=== PATIENT | female | born 1985 | race Caucasian/White ===

== ENCOUNTER 2016-10-26 19:01 | Emergency (ER) | payer MEDICARE, OTHER ==
[~2016-10-26] VITALS: Ht 160 cm; Wt 103.9 kg
[2016-10-26 19:01] VITALS: BP 144/82
[~2016-10-26 19:01] MED LIST: TRAM50TA PO
--- NOTE | 2016-10-26 19:42 | PHYS DOC ---
General Chief Complaint: SORE THROAT Stated Complaint: NECK PAIN, SORE THROAT Time Seen by MD: 19:10 Source: patient Problems: History of Present Illness Initial Comments Patient here for sore throat. She says this started 2 days ago. She has difficulty swallowing both food and liquids, but has been able tolerate liquids. She says it feels like a knife when she swallows. She also feels swelling in the submandibular area like her glands are swollen up. She's had no fever or chills. There is no runny nose and no postnasal drip or sinus congestion. There is no earache. She has no trouble talking. She has no chest pain or shortness of breath. There is no cough. There is no nausea or vomiting. She has no abdominal pain. There is no change amount of bladder habits and she denies any focal extremity or neurologic complaints. Patient's really done nothing at home for this and notes no factors increase or decrease her symptoms other than swallowing makes the pain worse. She has no known sick contacts. Patient's past medical history as work for asthma as well as mental health issues such as anxiety and depression. She is a nonsmoker and nonuser of ethanol. Allergies: Coded Allergies: Sulfa (Sulfonamide Antibiotics) (Verified Allergy, Intermediate, 07/25/16) Past Medical History Medical History: asthma Psychosocial History: anxiety, depression Social History Smoker: non-smoker Alcohol: none Review of Systems All Other Systems: Reviewed and Negative Physical Exam General Appearance: WD/WN, no apparent distress Ear, Nose, Throat: pharyngeal erythema, tonsillar swelling, other Neck: full range of motion, supple, normal inspection, lymphadenopathy (R), lymphadenopathy (L) Respiratory: lungs clear, normal breath sounds, no respiratory distress Cardiovascular: regular rate, rhythm, no edema Neurologic/Psychiatric: alert, normal mood/affect, oriented x 3 Skin: normal color, warm/dry Lymphatic: other Comments Generally this is an obese white female in no acute distress. She appears mildly anxious. Vitals are as noted. Pertinent signs on physical exam shows ears to be clear. Tonsils are somewhat enlarged and erythematous as is the back of pharynx. However, there is no exudate noted. There is no distinct dysphagia, dysphonia, or problems with secretions. Patient has minimal but tender bilateral high cervical adenopathy. There is no evidence of Manas's angina. There is no swelling about the neck. Chest is clear and cardiovascular exams unremarkable. She is awake alert oriented and cooperative. Remainder of physical exam is clinically unremarkable. Orders, Labs, Meds Old charts note is no prior ER visit for abdominal pain. Strep test is positive. 1940 Patient resting comfortably in the ED. Discussed the patient most likely diagnosis of strep pharyngitis. We'll go and get her started on some antibiotics medicine for pain. I'll write a prescription for penicillin as well as for Tylenol with codeine syrup to hopefully make it easier for her to swallow is dehydrated. We discussed home care including rest, increase fluids, use Advil or Tylenol as needed for fever or pain. She voices understanding of the need to follow up with primary care or return to the ER sooner as needed if worsening anyway. She looks well, no acute discomfort distress, mildly anxious, and okay for discharge home at this time. LIZZETH THOMAS MD Oct 26, 2016 19:42
== END 2016-10-26 19:55 | disposition home or self-care (01) ==
LOC: ER 19:01
DX: J02.0 Streptococcal pharyngitis (principal); F32.9 Major depressive disorder, single episode, unspecified; F41.9 Anxiety disorder, unspecified; J45.909 Unspecified asthma, uncomplicated; Z88.2 Allergy status to sulfonamides
CPT/HCPCS: 87880; 99282; 99283

== ENCOUNTER 2017-08-20 18:40 | Emergency (ER) | payer MEDICARE, OTHER ==
[~2017-08-20] VITALS: Ht 160 cm; Wt 108.9 kg
[2017-08-20 18:40] VITALS: BP 140/94
--- NOTE | 2017-08-20 19:03 | PHYS DOC ---
Past History Past Medical History: Anxiety, Asthma, Bipolar, Depression Past Surgical History: Cholecystectomy, Tubal ligation Alcohol Use: Occasionally Drug Use: None Adult General Chief Complaint Chief Complaint: FOOT INJURY PAIN HPI HPI Patient is a 32 year old female who presents with complaint of right foot pain. Patient states that she injured her foot earlier today. Patient states that she slipped on ice while going to check her mail. The patient states that her foot folded underneath her as she fell. Patient states that she is having pain towards the right great toe and the top of her right foot. Patient states that the pain worsens when she bears weight and rates it as 9 out of 10 at its worst. Patient denies any other injuries. Patient came to the emergency department for evaluation to make sure that she did not break anything in her foot. Review of Systems Review of Systems Constitutional: Denies fever or chills [] Eyes: Denies change in visual acuity, redness, or eye pain [] HENT: Denies nasal congestion or sore throat [] Musculoskeletal: Right foot pain[] Integument: Denies rash or skin lesions [] Neurologic: Denies headache, focal weakness or sensory changes [] All other systems were reviewed and found to be within normal limits, except as documented in this note. Current Medications Current Medications Current Medications Medications (Trade) Dose Ordered Sig/[facility] Start Time Stop Time Status Last Admin Dose Admin Ibuprofen (Motrin) 600 mg 1X ONCE 08/20/17 19:00 08/20/17 19:01 UNV Allergies Allergies Allergies Coded Allergies Type Severity Reaction Last Updated Verified Sulfa (Sulfonamide Antibiotics) Allergy Intermediate 07/25/16 Yes Physical Exam Physical Exam Constitutional: Well developed, well nourished, no acute distress, non-toxic appearance. [] HENT: Normocephalic, atraumatic, bilateral external ears normal, oropharynx moist, no oral exudates, nose normal. [] Eyes: PERRLA, EOMI, conjunctiva normal, no discharge. [] Extremities: No obvious deformity right foot, tenderness palpation along dorsum of right great toe and right forefoot, no tenderness to palpation along ankle, full range of motion and right ankle, normal sensation and normal capillary refill in all 5 digits of right foot. [] Neurologic: Alert and oriented X 3, normal motor function, normal sensory function, no focal deficits noted. [] Current Patient Data Vital Signs Vital Signs Date Time Temp Pulse Resp B/P (MAP) Pulse Ox O2 Delivery O2 Flow Rate FiO2 08/20/17 18:40 98.4 87 20 98 Room Air Lab Results None performed EKG EKG Not performed[] Radiology/Procedures Radiology/Procedures 3 view right foot x-ray interpreted by me: No fractures, no dislocations, normal soft tissue[] Course & Med Decision Making Course & Med Decision Making Pertinent Labs and Imaging studies reviewed. (See chart for details) Patient treated with ibuprofen and was given crutches to assist with ambulation. Advised follow-up with primary doctor in 1 week if symptoms are not improving. Also recommended RICE therapy for continued outpatient therapy. Advised return emergency department for any worsening symptoms. Patient voiced understanding and in agreement with treatment plan. Dragon Disclaimer Dragon Disclaimer This electronic medical record was generated, in whole or in part, using a voice recognition dictation system. Departure Departure: Impression: Primary Impression: Foot sprain Disposition: HOME, SELF-CARE Condition: IMPROVED Referrals: DODIE RESENDIZ (PCP) Patient Instructions: Foot Sprain, RICE - Routine Care for Injuries Additional Instructions: Follow-up with your primary doctor in 1 week if symptoms are not improving. Return to the emergency department for any worsening symptoms. Scripts Ibuprofen (IBUPROFEN) 600 Mg Tablet 600 MG PO Q6HRS Y for PAIN, #30 TAB Prov: DIANA VELASCO MD 08/20/17 Problem Qualifiers Primary Impression: Foot sprain Encounter type: initial encounter Laterality: right Qualified Codes: S93.601A - Unspecified sprain of right foot, initial encounter DIANA VELASCO MD Aug 20, 2017 19:03
[2017-08-20] MEDS ORDERED: IBUPROFEN 600 MG TABLET. PO ONE (19:15)
[2017-08-20] MEDS ORDERED: IBUP600T16 PO (19:32)
--- NOTE | 2017-08-21 07:26 | RAD ---
3 view right foot 08/20/2017 Clinical indication: Right foot pain status post fall. Comparison: None. Findings: No acute fracture or traumatic malalignment. Normal bony alignment. The joint spaces are maintained. Mild infracalcaneal spurring. Impression: No acute osseous abnormality.
== END 2017-08-20 19:49 | disposition home or self-care (01) ==
LOC: ER 18:40
DX: S93.601A Unspecified sprain of right foot, initial encounter (principal); J45.909 Unspecified asthma, uncomplicated; F41.9 Anxiety disorder, unspecified; F31.9 Bipolar disorder, unspecified; Z88.2 Allergy status to sulfonamides; W00.0XXA Fall on same level due to ice and snow, initial encounter; Y93.89 Activity, other specified; Y99.8 Other external cause status; Y92.89 Other specified places as the place of occurrence of the external cause
CPT/HCPCS: 73630; 99284

== ENCOUNTER 2018-05-22 21:45 | Emergency (ER) | payer MEDICARE, OTHER ==
[~2018-05-22] VITALS: Ht 157.5 cm; Wt 111.1 kg
[~2018-05-22 21:45] MED LIST changes: +IBUP600T16 PO
--- NOTE | 2018-05-23 05:06 | ED.ADGEN ---
Past History Past Medical History: Anxiety, Asthma, Bipolar, Depression Past Surgical History: Cholecystectomy, Tubal ligation Alcohol Use: Occasionally Drug Use: None, Other Adult General Chief Complaint Chief Complaint Anxiety HPI HPI Patient is a 33-year-old female presents with increasing anxiety, palpitations and paranoia after smoking half well prior to ED arrival. In terms began approximately 30 minutes ago. Patient reports feeling uneasy. No shortness breath, wheezing, fever or cough. No other acute symptoms or complaints. Arrives by EMS. Patient initially tachycardic with heart rate in the upper 130s. Review of Systems Review of Systems Review symptoms as per history of present illness. All other review symptoms are negative.] All other systems were reviewed and found to be within normal limits, except as documented in this note. Allergies Allergies Allergies Coded Allergies Type Severity Reaction Last Updated Verified Sulfa (Sulfonamide Antibiotics) Allergy Intermediate 05/23/18 Yes Physical Exam Physical Exam Constitutional: Well developed, well nourished, anxious[] HENT: Normocephalic, atraumatic, bilateral external ears normal, oropharynx moist, no oral exudates, nose normal. [] Eyes: PERRLA, EOMI, conjunctiva normal, no discharge. [] Neck: Normal range of motion, no tenderness, supple, no stridor. [] Cardiovascular:Heart rate regular rhythm, no murmur [] Lungs & Thorax: Bilateral breath sounds clear to auscultation [] Abdomen: Bowel sounds normal, soft, no tenderness, no masses, no pulsatile masses. [] Skin: Warm, dry, no erythema, no rash. [] Back: No tenderness, no CVA tenderness. [] Extremities: No tenderness, no cyanosis, no clubbing, ROM intact, no edema. [] Neurologic: Alert and oriented X 3, normal motor function, normal sensory function, no focal deficits noted. [] Psychologic: Affect anxious, no HI or SI.[] Current Patient Data Vital Signs Vital Signs Date Time Temp Pulse Resp B/P (MAP) Pulse Ox O2 Delivery O2 Flow Rate FiO2 05/22/18 21:58 98.5 102 16 99 Room Air EKG EKG [] Radiology/Procedures Radiology/Procedures [] Course & Med Decision Making Course & Med Decision Making Pertinent Labs and Imaging studies reviewed. (See chart for details) [Symptoms improved while in the emergency department. Vital signs stable. No other treatment or indicated at this time.] Final Impression Final Impression [#1 anxiety state #2 marijuana abuse] Dragon Disclaimer Dragon Disclaimer This electronic medical record was generated, in whole or in part, using a voice recognition dictation system. FERNANDO WHEELER DO May 23, 2018 05:06
== END 2018-05-22 22:16 | disposition home or self-care (01) ==
LOC: ER 21:45
DX: F41.9 Anxiety disorder, unspecified (principal); F12.10 Cannabis abuse, uncomplicated; J45.909 Unspecified asthma, uncomplicated; F31.9 Bipolar disorder, unspecified; Z88.2 Allergy status to sulfonamides
CPT/HCPCS: 99284

== ENCOUNTER 2019-11-08 20:36 | Emergency (ER) | payer MEDICARE, OTHER ==
[~2019-11-08] VITALS: Ht 157.5 cm; Wt 93.6 kg
[2019-11-08 20:40] VITALS: BP 150/106
--- NOTE | 2019-11-08 21:23 | PHYS DOC ---
Past History Past Medical History: Anxiety, Asthma, Bipolar, Depression Past Surgical History: Cholecystectomy, Tubal ligation, Other Additional Past Surgical Histo: cyst removal on breast Alcohol Use: Rarely Drug Use: Marijuana, Other Adult General Chief Complaint Chief Complaint: EYE PROBLEMS HPI HPI Patient is a 34-year-old female with history of anxiety who presents stating that her eyes feel itchy. This is been ongoing for the last couple of days. She's tried some eyedrops at home without success. She denies any visual change. She states her eyes have not been red that she's noticed.[] Review of Systems Review of Systems Constitutional: Denies fever or chills [] Eyes: PERRLA history of present illness[] HENT: Denies nasal congestion or sore throat [] Respiratory: Denies cough or shortness of breath [] Cardiovascular: No additional information not addressed in HPI [] GI: Denies abdominal pain, nausea, vomiting, bloody stools or diarrhea [] : Denies dysuria or hematuria [] Musculoskeletal: Denies back pain or joint pain [] Integument: Denies rash or skin lesions [] Neurologic: Denies headache, focal weakness or sensory changes [] Endocrine: Denies polyuria or polydipsia [] All other systems were reviewed and found to be within normal limits, except as documented in this note. Allergies Allergies Allergies Coded Allergies Type Severity Reaction Last Updated Verified Sulfa (Sulfonamide Antibiotics) Allergy Intermediate 05/23/18 Yes naproxen Allergy Intermediate Hives 11/08/19 Yes Physical Exam Physical Exam Constitutional: Well developed, well nourished, no acute distress, non-toxic appearance. [] HENT: Normocephalic, atraumatic, bilateral external ears normal, oropharynx moist, no oral exudates, nose normal. [] Eyes: PERRLA, EOMI, conjunctiva normal, no discharge, no pain with ocular compression. [] Neck: Normal range of motion, no tenderness, supple, no stridor. [] Cardiovascular:Heart rate regular rhythm, no murmur [] Lungs & Thorax: Bilateral breath sounds clear to auscultation [] Abdomen: Bowel sounds normal, soft, no tenderness, no masses, no pulsatile masses. [] Skin: Warm, dry, no erythema, no rash. [] Back: No tenderness, no CVA tenderness. [] Extremities: No tenderness, no cyanosis, no clubbing, ROM intact, no edema. [] Neurologic: Alert and oriented X 3, normal motor function, normal sensory function, no focal deficits noted. [] Psychologic: Anxious. [] Current Patient Data Vital Signs Vital Signs Date Time Temp Pulse Resp B/P (MAP) Pulse Ox O2 Delivery O2 Flow Rate FiO2 11/08/19 20:40 98.1 98 18 150/106 (121) 99 Room Air EKG EKG [] Radiology/Procedures Radiology/Procedures [] Course & Med Decision Making Course & Med Decision Making Pertinent Labs and Imaging studies reviewed. (See chart for details) [] Dragon Disclaimer Dragon Disclaimer This electronic medical record was generated, in whole or in part, using a voice recognition dictation system. Departure Departure: Impression: Primary Impression: Allergic conjunctivitis Disposition: HOME, SELF-CARE Condition: STABLE Referrals: PCP,NO (PCP) Patient Instructions: Allergic Conjunctivitis, Allergies, Generic Problem Qualifiers Primary Impression: Allergic conjunctivitis Laterality: bilateral Qualified Codes: H10.13 - Acute atopic conjunctivitis, bilateral MONI PATRICIA DO Nov 08, 2019 21:22
== END 2019-11-08 21:25 | disposition home or self-care (01) ==
LOC: ER 20:36
DX: H10.13 Acute atopic conjunctivitis, bilateral (principal); J45.909 Unspecified asthma, uncomplicated; F41.9 Anxiety disorder, unspecified; F31.9 Bipolar disorder, unspecified; Z88.2 Allergy status to sulfonamides; Z88.8 Allergy status to other drugs, medicaments and biological substances
CPT/HCPCS: 99281

== ENCOUNTER 2019-11-27 22:35 | Emergency (ER) | payer MEDICARE, OTHER ==
[~2019-11-27] VITALS: Ht 157.5 cm; Wt 97.8 kg
[2019-11-27] MEDS ORDERED: BUTALB/APAP/CAFEIN 50/325/40MG TABLET. PO ONE (23:45)
[2019-11-27] MEDS ORDERED: FAMOTIDINE 20 MG TABLET PO ONE (23:45)
[2019-11-27] MEDS ORDERED: DEXAMETHASONE SOD PHOS 4 MG/ML VIAL IM ONE (23:45)
[2019-11-27] MEDS ORDERED: FAMO-63 PO (23:52)
[2019-11-27] MEDS ORDERED: PRED20TA PO (23:52)
[2019-11-27] MEDS ORDERED: BUTA1TAB23 PO (23:52)
--- NOTE | 2019-11-27 23:52 | PHYS DOC ---
Past History Past Medical History: Anxiety, Asthma, Bipolar, Depression Past Surgical History: Cholecystectomy, Tubal ligation, Other Additional Past Surgical Histo: cyst removal on breast, D&C Smoking: Cigarettes Alcohol Use: Rarely Drug Use: Marijuana, Other General Adult EDM: Chief Complaint: HEADACHE HPI: HPI: 34-year-old female presents with report of headache, pruritus, and burning with urination 2 days. Patient reports his been taking Benadryl without significant improvement. Denies trauma. Denies neck pain. Denies rash. Denies new medications, shampoos, soaps, detergents, or fever/chills. Denies prior episodes of similar. Reports last took Benadryl 4 hours ago. Reports last took Tylenol at 1600. Review of Systems: Review of Systems: Constitutional: Denies fever or chills Eyes: Denies redness or eye pain HENT: Denies nasal congestion or sore throat Respiratory: Denies cough or shortness of breath Cardiovascular: Denies chest pain or palpitations GI: Denies abdominal pain, nausea, or vomiting : Denies dysuria or hematuria Musculoskeletal: Denies back pain or neck pain Integument: Denies rash or skin lesions; reports pruritus of face Neurologic: Reports headache; denies focal weakness or sensory changes Complete systems were reviewed and found to be within normal limits, except as documented in this note. Current Medications: Current Meds: Current Medications Medications (Trade) Dose Ordered Sig/[facility] Start Time Stop Time Status Last Admin Dose Admin Acetaminophen/ Butalbital/ Caffeine (Fioricet) 2 tab 1X ONCE 11/27/19 23:45 11/27/19 23:46 11/27/19 23:23 2 TAB Dexamethasone Sodium Phosphate (Decadron) 10 mg 1X ONCE 11/27/19 23:45 11/27/19 23:46 11/27/19 23:25 10 MG Famotidine (Pepcid) 20 mg 1X ONCE 11/27/19 23:45 11/27/19 23:46 Allergies: Allergies: Allergies Coded Allergies Type Severity Reaction Last Updated Verified Sulfa (Sulfonamide Antibiotics) Allergy Intermediate 05/23/18 Yes naproxen Allergy Intermediate Hives 11/08/19 Yes Physical Exam: PE: Constitutional: Well developed, well nourished, no acute distress, non-toxic appearance HENT: Normocephalic, atraumatic, oropharynx moist Eyes: PERRL, EOMI, conjunctiva normal, no discharge, no nystagmus Neck: Normal range of motion, no tenderness, supple, no meningeal signs Cardiovascular: Heart rate normal, regular rhythm Lungs & Thorax: Bilateral breath sounds clear to auscultation, no wheezing Skin: Warm, dry, no erythema, mild erythematous rash to face Extremities: No tenderness, ROM intact, no edema Neurologic: Alert and oriented X 3, normal motor function, normal sensory function, no focal deficits noted Psychologic: Affect normal, judgment normal Current Patient Data: Vital Signs: Vital Signs Date Time Temp Pulse Resp B/P (MAP) Pulse Ox O2 Delivery O2 Flow Rate FiO2 11/27/19 23:04 98.0 117 18 158/113 (128) 100 Room Air EKG: EKG: [] Radiology/Procedures: Radiology/Procedures: [] Course & Med Decision Making: Course & Med Decision Making Pertinent Lab studies reviewed. (See chart for details) Patient presents with headache and pruritus of face. Afebrile. No meningeal signs noted. Denies history of trauma. Patient is reporting some dysuria. Urine negative. UA without signs of infection. Symptomatic treatment provided. Patient stable for discharge with outpatient follow-up with PCP. Discussed findings and plan with patient, who acknowledges understanding and agreement. Tano Disclaimer: Tano Disclaimer: This electronic medical record was generated, in whole or in part, using a voice recognition dictation system. Departure Departure: Impression: Primary Impression: Headache Qualified Codes: R51 - Headache Additional Impressions: Pruritus Dysuria Disposition: HOME, SELF-CARE Condition: STABLE Referrals: PCP,SASKIA (PCP) Patient Instructions: Dysuria-Brief, Headache, FAQs, Pruritus Additional Instructions: Continue to use over the counter Benadryl 25mg every 4-6 hours as needed for itching. Scripts Butalb/Acetaminophen/Caffeine ([id number] 50-325-40) 1 Each Tablet 1 EACH PO Q6HRS PRN for HEADACHE, #20 TAB Prov: CLAIR SWIFT DO 11/27/19 Prednisone (PREDNISONE) 20 Mg Tablet 2 TAB PO DAILY for Pruritis, #8 TAB Start this prescription on 11/28/2019 Prov: CLAIR SWIFT DO 11/27/19 Famotidine (PEPCID) 20 Mg Tablet 1 TAB PO BID for Pruritis, #14 TAB Prov: CLAIR SWIFT DO 11/27/19 CLAIR SWIFT DO Nov 27, 2019 23:52
[2019-11-28 00:27] LABS: BILIRUBIN,URINE NEG (NEG); CLARITY,URINE HAZY; COLOR,URINE STRAW; GLUCOSE,URINE NEG (NEG); UROBILINOGEN,URINE 0.2 mg/dL (0.2 mg/dL)
[2019-11-28 00:28] LABS: AMORPHOUS SEDIMENT,UR PRESENT /HPF; BACTERIA,URINE FEW /HPF (0-FEW); NITRITE,URINE NEG (NEG); RBC,URINE OCC /HPF (0-2); SQUAMOUS EPITHELIAL CELL,UR MOD /LPF; WBC,URINE OCC /HPF (0-4)
[2019-11-28 00:55] VITALS: BP 165/110
[2019-11-28] MEDS ORDERED: ERYTHROMYCIN 0.5% OPHTH OINTMENT 1GM TUBE. ONE (01:01)
[2019-11-28] MEDS ORDERED: ERYTHROMYCIN 0.5% OPHTH OINTMENT 1GM TUBE. OD ONE (01:30)
== END 2019-11-28 01:06 | disposition home or self-care (01) ==
LOC: ER 22:35
DX: R51 Headache (principal); L29.9 Pruritus, unspecified; R30.0 Dysuria; J45.909 Unspecified asthma, uncomplicated; F17.210 Nicotine dependence, cigarettes, uncomplicated; Z88.2 Allergy status to sulfonamides; Z88.8 Allergy status to other drugs, medicaments and biological substances
CPT/HCPCS: 81001; 81025; 96372; 99284; J1100

== ENCOUNTER 2020-03-24 20:52 | Emergency (ER) | payer MEDICARE, OTHER ==
[~2020-03-24] VITALS: Ht 157.5 cm; Wt 101.0 kg
[~2020-03-24 20:52] MED LIST changes: +BUTA1TAB23 PO; +FAMO-63 PO; +PRED20TA PO
--- NOTE | 2020-03-24 20:58 | PHYS DOC ---
Past History Past Medical History: Anxiety, Asthma, Bipolar, Depression Past Surgical History: Cholecystectomy, Tubal ligation, Other Additional Past Surgical Histo: cyst removal on breast, D&C Smoking: Cigarettes Alcohol Use: Rarely Drug Use: Marijuana, Other General Adult HPI: HPI: ".. I feel like I am getting low blood sugars.. My doctor says.. I just need to eat...but I get shaky..." Patient is a 35 year old female who presents with complaints of hypoglycemia. Patient states she has been eating a regular. No history of diabetes. Not taking diabetic meds. Denies illicit drug use. Patient denies to tachycardia or chest pain. Does have a history of anxiety. No recent travel. No specific ill contacts. Does follow-up with primary care. Denies any history of coronary artery disease, pulmonary embolisms, DVTs, coagulopathy, dysrhythmias. Denies fever or chills. Denies immunosuppression. Denies any specific ill contacts. Review of Systems: Review of Systems: Constitutional: Denies fever or chills Eyes: Denies change in visual acuity HENT: Denies nasal congestion or sore throat Respiratory: Denies cough or shortness of breath Cardiovascular: Denies chest pain or edema GI: Denies abdominal pain, nausea, vomiting, bloody stools or diarrhea : Denies dysuria Musculoskeletal: Denies back pain or joint pain Integument: Denies rash Neurologic: Denies headache, focal weakness or sensory changes Endocrine: Denies polyuria or polydipsia . Complains of hypoglycemia Lymphatic: Denies swollen glands Psychiatric: Complains of anxiety Heart Score: HEART Score for Chest Pain: HEART Score for Chest Pain Response (Comments) Value History Slighlty/Non-Suspicious 0 ECG Normal 0 Age < 45 0 Risk Factors 1 or 2 Risk Factors 1 Troponin < Normal Limit 0 Total 1 Risk Factors: Risk Factors: DM, Current or recent (<one month) smoker, HTN, HLP, family history of CAD, obesity. Risk Scores: Score 0 - 3: 2.5% MACE over next 6 weeks - Discharge Home Score 4 - 6: 20.3% MACE over next 6 weeks - Admit for Clinical Observation Score 7 - 10: 72.7% MACE over next 6 weeks - Early Invasive Strategies Family History: Family History: Diabetes Current Medications: Current Meds: See nursing for home meds Allergies: Allergies: Allergies Coded Allergies Type Severity Reaction Last Updated Verified Sulfa (Sulfonamide Antibiotics) Allergy Intermediate 05/23/18 Yes naproxen Allergy Intermediate Hives 11/08/19 Yes Physical Exam: PE: Constitutional: Moderate acute distress, non-toxic appearance. [] HENT: Normocephalic, atraumatic, bilateral external ears normal, oropharynx dry, no oral exudates, nose normal. [] Eyes: PERRLA, EOMI, conjunctiva normal, no discharge. [] Neck: Normal range of motion, no tenderness, supple, no stridor. [] Cardiovascular:Heart rate regular rhythm, no murmur []. Monitor did show at times elevated heart rates up to 100. Lungs & Thorax: Bilateral breath sounds equal at apex on auscultation []Few scattered wheezes. Abdomen: Bowel sounds normal, soft, no tenderness, no masses, no pulsatile masses. Obese. Old surgical scars. Skin: Warm, dry, no erythema, no rash. [] Back: No tenderness, no CVA tenderness. [] Extremities: No tenderness, no cyanosis, no clubbing, ROM intact, no edema. [] No cording appreciated Neurologic: Alert and oriented X 3, normal motor function, normal sensory function, no focal deficits noted. [] Psychologic: Affect anxiety, judgement normal, mood normal. [] EKG: EKG: My interpretation EKG shows sinus rhythm at 99 bpm. No acute morphology [] Radiology/Procedures: Radiology/Procedures: [] Course & Med Decision Making: Course & Med Decision Making Pertinent Labs and Imaging studies reviewed. (See chart for details) Patient is at regular intervals. Patient avoid any meds which could increase her anxiety, such as stimulants caffeine, and attention deficit meds etc. patient push fluids. Patient follow-up primary care. Patient check glucose levels 4 times a day and document these levels and show to your primary. Must follow-up. Return if any concerns. Impression: 1. Hx.Hypoglycemia 2. Mild dehydration elevated creatinine 1.4 and urine concentration 3. Positive drug screen from ketamine/methamphetamine [] Dragon Disclaimer: Dragon Disclaimer: This electronic medical record was generated, in whole or in part, using a voice recognition dictation system. Departure Departure: Disposition: HOME/RESIDENCE PRIOR TO ADM Condition: STABLE Referrals: PCP,NO (PCP) Justification of Admission: Justification of Admission: Justification of Admission Dx: N/A Dragon Disclaimer This chart was dictated in whole or in part using Voice Recognition software in a busy, high-work load, and often noisy Emergency Department environment. It may contain unintended and wholly unrecognized errors or omissions. FAUSTINO HOOKS MD Mar 24, 2020 20:58
[2020-03-24] MEDS ORDERED: IV RINGERS SOLUTION,LACTATED 1,000 ML IV ONE (21:00)
[2020-03-24] MEDS ORDERED: IV RINGERS SOLUTION,LACTATED 1,000 ML IV SCH (21:26)
[2020-03-24 21:53] LABS: BASO # 0.1 x10^3/uL (0.0-0.2); BASO % 1 % (0-3); EOS # 0.2 x10^3/uL (0.0-0.7); EOS % 2 % (0-3); HEMATOCRIT 37.4 % (36.0-47.0); HEMOGLOBIN 12.5 g/dL (12.0-15.5); LYMPH # 2.7 x10^3/uL (1.0-4.8); LYMPH % 33 % (24-48); MEAN CORPUSCULAR HEMOGLOBIN 30 pg (25-35); MEAN CORPUSCULAR HGB CONC 34 g/dL (31-37); MEAN CORPUSCULAR VOLUME 88 fL (79-100); MONO # 0.7 x10^3/uL (0.0-1.1); MONO % 8 % (0-9); NEUT # 4.6 x10^3uL (1.8-7.7); NEUT % 56 % (31-73); PLATELET COUNT 289 x10^3/uL (140-400); RED BLOOD COUNT 4.23 x10^6/uL (3.50-5.40); RED CELL DISTRIBUTION WIDTH 15.3 % (11.5-14.5); WHITE BLOOD COUNT 8.2 x10^3/uL (4.0-11.0)
[2020-03-24 22:02] LABS: CALCIUM 8.5 mg/dL (8.5-10.1); CREATININE 1.4 mg/dL (0.6-1.0); POTASSIUM 3.7 mmol/L (3.5-5.1)
[2020-03-24 22:08] LABS: DIRECT BILIRUBIN 0.1 mg/dL (0.0-0.2); TOTAL BILIRUBIN 0.1 mg/dL (0.2-1.0); TOTAL PROTEIN 7.7 g/dL (6.4-8.2)
[2020-03-24 23:09] LABS: AMPHETAMINE/METHAMPHETAMINE POS (NEG); BARBITURATES NEG (NEG); BENZODIAZEPINES NEG (NEG); CANNABINOIDS NEG (NEG); COCAINE NEG (NEG); METHADONE NEG (NEG); OPIATES NEG (NEG); PHENCYCLIDINE NEG (NEG)
[2020-03-24 23:20] VITALS: BP 139/90
[2020-03-24 23:30] LABS: BILIRUBIN,URINE NEG (NEG); CLARITY,URINE CLEAR; COLOR,URINE YELLOW; GLUCOSE,URINE NEG (NEG); NITRITE,URINE NEG (NEG)
[2020-03-24 23:31] LABS: BACTERIA,URINE FEW /HPF (0-FEW); RBC,URINE 0 /HPF (0-2); SQUAMOUS EPITHELIAL CELL,UR FEW /LPF; WBC,URINE 0 /HPF (0-4)
--- NOTE | 2020-03-25 15:28 | EKG ---
[address] [address] Test Date: 2020-03-24 Test Time: 22:06:20 Pat Name: AURORA CORADO Department: Room: Gender: F Shoe Salesperson: LEYDI : 1985 Requested By: FAUSTINO HOOKS Order Number: [id number] Reading MD: Measurements Intervals [place] Rate: 99 P: 34 SC: 164 QRS: 16 QRSD: 94 T: 28 QT: 366 QTc: 469 Interpretive Statements SINUS RHYTHM NORMAL ECG RI6.02 No previous ECG available for comparison
== END 2020-03-25 00:10 | disposition home or self-care (01) ==
LOC: ER 20:52
DX: E16.2 Hypoglycemia, unspecified (principal); E86.0 Dehydration; R79.89 Other specified abnormal findings of blood chemistry; F15.10 Other stimulant abuse, uncomplicated; F41.9 Anxiety disorder, unspecified; F31.9 Bipolar disorder, unspecified; F17.210 Nicotine dependence, cigarettes, uncomplicated; J45.909 Unspecified asthma, uncomplicated; Z90.49 Acquired absence of other specified parts of digestive tract; Z98.51 Tubal ligation status; Z88.2 Allergy status to sulfonamides; Z88.8 Allergy status to other drugs, medicaments and biological substances
CPT/HCPCS: 36415; 80048; 80076; 80307; 81001; 82550; 82947; 84484; 85025; 93005; 96360; 99284; J7120

== ENCOUNTER 2020-06-03 22:06 | Emergency (ER) | payer MEDICARE, OTHER ==
[~2020-06-03] VITALS: Ht 157.5 cm; Wt 101.0 kg
[2020-06-03 22:06] VITALS: BP 164/110
--- NOTE | 2020-06-03 22:16 | PHYS DOC ---
Past History Past Medical History: Anxiety, Asthma, Bipolar, Depression, Other Additional Past Medical Histor: ADHD, IED Past Surgical History: Cholecystectomy, Tubal ligation, Other Additional Past Surgical Histo: cyst removal on breast, D&C Smoking: Cigarettes Alcohol Use: Rarely Drug Use: Marijuana, Other General Adult HPI: HPI: ".. I ve got some neck swelling... It blew up on .. I know I got bad teeth.. but the tooth back there is not that tender... but may jaw hurts bad.. and my face is swollen.. and now my neck is swollen.. I am hurting.. " Patient is a 35 year old female who presents with above hx and complaints dental decay and obvious deep dental cavity in tooth in area of 18. No pointing abscess. Does have facial fswelling and left neck adenopathy and swelling. Patient denies any history immunosuppression. No recent travel. No specific ill contacts. Patient does still smoke. Patient does not follow-up with dentist recently. No trismus. The pt. follows with Dr. Bauer as primary. Reportedly patient has a follow-up with a dentist or oral surgeon this coming week. Review of Systems: Review of Systems: Constitutional: Denies fever or chills Eyes: Denies change in visual acuity HENT: Complains of dental pain caries and now left facial swelling swelling and cellulitis Respiratory: Denies cough or shortness of breath Cardiovascular: Denies chest pain or edema GI: Denies abdominal pain, nausea, vomiting, bloody stools or diarrhea : Denies dysuria Musculoskeletal: Denies back pain or joint pain Integument: Denies rash Neurologic: Denies headache, focal weakness or sensory changes Endocrine: Denies polyuria or polydipsia Lymphatic: Denies swollen glands Psychiatric: Denies depression or anxiety Family History: Family History: Noncontributory to presentation Current Medications: Current Meds: See nursing for home medications Allergies: Allergies: Allergies Coded Allergies Type Severity Reaction Last Updated Verified Sulfa (Sulfonamide Antibiotics) Allergy Intermediate 05/23/18 Yes naproxen Allergy Intermediate Hives 11/08/19 Yes Physical Exam: PE: Constitutional: In acute distress, non-toxic appearance. [] HENT: Left facial cellulitis and left neck cellulitis with adenopathy, atraumatic, bilateral external ears normal, oropharynx moist, no oral exudates, nose normal. [] No trismus. Currently I see no pointing abscess or localization that is amenable for me to drain. External pharynx does not appear to have any localized abscess. Eyes: PERRLA, EOMI, conjunctiva normal, no discharge. [] Neck: Normal range of motion, left anterior chain adenopathy with tenderness, supple, no stridor. Left neck cellulitis. Trachea is midline. No bruits over carotid. Appears to have adequate flow in external jugular vein. Cardiovascular: Tachycardia heart rate regular rhythm, no murmur [] Lungs & Thorax: Bilateral breath sounds equal at apex with scattered wheezing auscultation [] Abdomen: Bowel sounds normal, soft, no tenderness, no masses, no pulsatile masses. Old surgery scars Skin: Warm, dry, no erythema, no rash. Multiple tattoos Back: No tenderness, no CVA tenderness. [] Extremities: No tenderness, no cyanosis, no clubbing, ROM intact, no edema. [] Neurologic: Alert and oriented X 3, normal motor function, normal sensory function, no focal deficits noted. [] Psychologic: Affect very anxious, judgement normal, mood at times tearful. EKG: EKG: [] Radiology/Procedures: Radiology/Procedures: [] Heart Score: Risk Factors: Risk Factors: DM, Current or recent (<one month) smoker, HTN, HLP, family history of CAD, obesity. Risk Scores: Score 0 - 3: 2.5% MACE over next 6 weeks - Discharge Home Score 4 - 6: 20.3% MACE over next 6 weeks - Admit for Clinical Observation Score 7 - 10: 72.7% MACE over next 6 weeks - Early Invasive Strategies Course & Med Decision Making: Course & Med Decision Making Pertinent Labs and Imaging studies reviewed. (See chart for details) Advised patient must follow-up with oral surgeon or dentist. Advised nothing we do in the ED tonight will fix the underlying problem. Her dental pain and facial cellulitis if not addressed promptly could become quite serious with the infection settling into anterior neck compartments. Cellulitis/infection can even expand into the mediastinum. Drainage of the underlying infection is essential. Compliance with her antibiotic is essential. Pain meds will do nothing to fix this problem. Rinse mouth with Listerine 4 times a day. Take Tylenol ibuprofen for pain. Take Keflex 500 mg 3 times a day. Take Flagyl 500 mg 3 times a day. Must not use any alcohol when taking Flagyl. Must see a dentist or oral surgeon. Most likely has a dental abscess in the area of tooth 18. Patient must follow-up wit h oral surgery. Impression: 1. Dental Absces 2. Facial and Neck cellulitis on Lt. 3. Left mandible pain [] Dragon Disclaimer: Dragon Disclaimer: This electronic medical record was generated, in whole or in part, using a voice recognition dictation system. Departure Departure: Disposition: 01 DC HOME SELF CARE/HOMELESS Condition: STABLE Referrals: ROSANGELA BAUER (PCP) Scripts Metronidazole (FLAGYL) 500 Mg Tablet 500 MG PO TID for dental and facial infection for 10 Days, #30 TAB Prov: FAUSTINO HOOKS MD 06/03/20 Cephalexin (KEFLEX) 500 Mg Capsule 500 MG PO TID for facial cellultiis for 10 Days, BOT Prov: FAUSTINO HOOKS MD 06/03/20 Dragon Disclaimer This chart was dictated in whole or in part using Voice Recognition software in a busy, high-work load, and often noisy Emergency Department environment. It may contain unintended and wholly unrecognized errors or omissions. Dragon Disclaimer This chart was dictated in whole or in part using Voice Recognition software in a busy, high-work load, and often noisy Emergency Department environment. It may contain unintended and wholly unrecognized errors or omissions. Dragon Disclaimer This chart was dictated in whole or in part using Voice Recognition software in a busy, high-work load, and often noisy Emergency Department environment. It may contain unintended and wholly unrecognized errors or omissions. Dragon Disclaimer This chart was dictated in whole or in part using Voice Recognition software in a busy, high-work load, and often noisy Emergency Department environment. It may contain unintended and wholly unrecognized errors or omissions. FAUSTINO HOOKS MD Jun 03, 2020 22:16
[2020-06-03] MEDS ORDERED: TETANUS AND DIPHTHERIA TOX/PF 0.5 ML VIAL. VAX IM ONE (23:15)
[2020-06-03] MEDS ORDERED: CEPH-264 PO (23:19)
[2020-06-03] MEDS ORDERED: METR500T PO (23:19)
[2020-06-03] MEDS ORDERED: oxyCODONE/APAP 5/325 1 TAB TABLET PO ONE (23:30)
[2020-06-03] MEDS ORDERED: cefTRIAXone IM 1 GM VIAL IM ONE (23:30)
[2020-06-03] MEDS ORDERED: DIPH,PERTUSS(ACELL),TET VAC/PF 0.5 ML SYRINGE. VAX IM ONE (23:30)
[2020-06-03] MEDS ORDERED: metroNIDAZOLE 500 MG TABLET PO ONE (23:30)
== END 2020-06-04 00:15 | disposition home or self-care (01) ==
LOC: ER 22:06
DX: K04.7 Periapical abscess without sinus (principal); L03.221 Cellulitis of neck; L03.211 Cellulitis of face; R68.84 Jaw pain; K02.9 Dental caries, unspecified; J45.909 Unspecified asthma, uncomplicated; F41.9 Anxiety disorder, unspecified; F31.9 Bipolar disorder, unspecified; F17.210 Nicotine dependence, cigarettes, uncomplicated; Z88.2 Allergy status to sulfonamides; Z88.8 Allergy status to other drugs, medicaments and biological substances
CPT/HCPCS: 90471; 90715; 96372; 99284; J0696